=== PATIENT | female | born 1960 | race Caucasian/White ===

== ENCOUNTER 2016-05-22 13:59 | Outpatient (CLI) | payer MEDICARE, OTHER | END 2016-05-22 14:00 | disposition home or self-care (01) | DX: M25.551 Pain in right hip (principal) ==

== ENCOUNTER 2018-06-22 09:47 | Outpatient (CLI) | payer MEDICARE, OTHER ==
[2018-06-22] MEDS ORDERED: AMINOPHYLLINE 250 MG/10 ML VIAL ONE (12:00)
[2018-06-22] MEDS ORDERED: REGADENOSON 0.4 MG/5 ML SYRINGE IVP ONE ×2 (12:00→19:57)
--- NOTE | 2018-06-22 16:02 | CARDIAC PROCEDURE NOTE ---
DATE OF SERVICE: 06/22/2018 Physician: Sydni Saha MD, [facility] INDICATIONS: Chest pain, syncope, hypertension, bronchitis. CARDIAC RISK FACTORS: Surgical postmenopausal status, cigarette smoker, hypertension, family history of early heart disease (brother and father had CAD in their 40s). PROCEDURE: After signing informed consent, the patient underwent a Lexiscan pharmaceutical stress test with nuclear myocardial perfusion imaging. RESTING HEART RATE: 57. PEAK HEART RATE: 84. RESTING BLOOD PRESSURE: 106/65. PEAK BLOOD PRESSURE: 144/72. Lexiscan was infused per protocol. Patient developed 5/10 chest discomfort with the Lexiscan, and mild shortness of breath and later a headache. Aminophylline 50 mg was given for reversal, when after 4 minutes of recovery she had not resolved the symptoms. The chest pain resolved and the headache diminished. Oxygen saturation was 99% on room air. RESTING ELECTROCARDIOGRAM: Normal sinus rhythm, early R/S transition. ELECTROCARDIOGRAM AT PEAK: No new ST segment or T-wave changes. SUMMARY 1. Abnormal resting electrocardiogram, suggesting cor pulmonale (in a patient who smokes, she refused to quit as we spoke about this). 2. No ischemic changes by electrocardiogram criteria, on this pharmaceutical stress test. 3. Nuclear images reported separately. cc: Salomon Belle MD TD: 06/22/2018 13:52 MTDD
--- NOTE | 2018-06-23 11:24 | Nuclear Medicine Report ---
Reason: CHEST PAIN, CHRONIC BRONCHITIS Procedure Date: 06/22/2018 Accession Number: [id number] / [id number] Procedure: NM - Myocardial Perfusion STR/RST CPT Code: FULL RESULT: EXAM: SINGLE-ISOTOPE PHARMACOLOGICAL STRESS TEST WITH REGADENOSON. SINGLE-ISOTOPE AND ONE-DAY REST/STRESS MYOCARDIAL PERFUSION SCANS WITH TOMOGRAPHIC IMAGING, QUANTITATIVE ANALYSIS, WALL MOTION ANALYSIS AND CALCULATION OF EJECTION FRACTION. EXAM DATE: 06/22/2018 07:51 PM. CLINICAL HISTORY: CHEST PAIN, CHRONIC BRONCHITIS. COMPARISON: None. TECHNIQUE: After the intravenous administration of 10.4 mCi of Tc-99m sestamibi, a rest myocardial perfusion scan was done with tomography. Motion correction was applied when appropriate. After an appropriate delay, pharmacological stress was performed with the infusion of 0.4 mg regadenoson per protocol. According to protocol, 43.3 mCi of Tc-99m sestamibi was injected for stress myocardial perfusion scan. Motion correction was applied when appropriate. Gated tomographic images were obtained for wall motion analysis and computation of left ventricular ejection fraction. FINDINGS: Perfusion images: Left ventricular chamber size appears normal at rest and unchanged at stress. No convincing fixed perfusion deficits. No convincing reversible perfusion deficits. SSS 3, SRS 0, SDS 3. Gated images: No convincing focal wall motion abnormality. Calculated left ventricular EDV 85 mL, ESV 30 mL. The left ventricular ejection fraction is estimated at 64% (normal > 50%). IMPRESSION: 1. No convincing reversible perfusion deficits to indicate stress-induced ischemia. 2. No convincing fixed perfusion deficits. 3. Left ventricular ejection fraction of 64% (normal > 50%). RADIA
== END 2018-06-22 09:48 | disposition home or self-care (01) ==
LOC: DI 09:47
PROVIDERS: ATTEND Internal Medicine Cardiovascular Disease
DX: R07.89 Other chest pain (principal); J41.0 Simple chronic bronchitis; I10 Essential (primary) hypertension; R55 Syncope and collapse; R94.31 Abnormal electrocardiogram [ECG] [EKG]; F17.210 Nicotine dependence, cigarettes, uncomplicated; Z82.49 Family history of ischemic heart disease and other diseases of the circulatory system
CPT/HCPCS: 78452; 93017; 93306; A9500; J2785

== ENCOUNTER 2020-09-09 14:34 | Outpatient (CLI) | payer MEDICARE, OTHER ==
--- NOTE | 2020-09-09 17:15 | DEXA Report ---
PROCEDURE: Dexa Spine and/or Hip INDICATIONS: POST MENOPAUSAL, SCREENING FOR OSTEOPOROSIS TECHNIQUE: Dual energy x-ray absorptiometry (DXA) was performed on a [employer] System. Regions measur ed are the AP Spine, femoral neck, and if needed forearm. COMPARISON: None. FINDINGS: Lumbar Spine: Bone Mineral Density 1.098 g/cm/cm,T score -0.7, normal Left Hip: Bone Mineral Density 0.988 g/cm/cm,T score -0.2, normal Left Femoral Neck: Bone Mineral Density 0.921 g/cm/cm, T score -0.8, normal (T score greater or equal to -1.0: NORMAL) (T score from -1.1 to -2.4: OSTEOPENIA) (T score less than or equal to -2.5 to: OSTEOPOROSIS) Impression: Normal bone marrow density. Patients with diagnosis of osteoporosis or osteopenia should have regular bone mineral density assess ment. For those eligible for Medicare, routine testing is allowed once every 2 years. Testing frequ ency can be increased for patients who have rapidly progressing disease or for those who are receivin g medical therapy to restore bone mass. Reviewed by: Puja Suh MD, PhD on 09/09/2020 5:14 PM PDT Approved by: Puja Suh MD, PhD on 09/09/2020 5:14 PM PDT Station ID: [id number]
== END 2020-09-09 14:35 | disposition home or self-care (01) ==
LOC: DI 14:34
PROVIDERS: ATTEND Family Medicine
DX: Z13.820 Encounter for screening for osteoporosis (principal); Z78.0 Asymptomatic menopausal state

== ENCOUNTER 2020-09-11 15:43 | Outpatient (CLI) | payer MEDICARE, OTHER ==
--- NOTE | 2020-09-12 12:49 | Mammography Report ---
BILATERAL DIGITAL SCREENING MAMMOGRAM 3D/2D: 09/11/2020 CLINICAL: Routine screening. Baseline exam. No prior exams were available for comparison. There are scattered fibroglandular elements in both br easts. No significant masses, calcifications, or other findings are seen in either breast. IMPRESSION: NEGATIVE There is no mammographic evidence of malignancy. A 1 year screening mammogram is recommended. This exam was interpreted at Station ID: [id number]. NOTE: For mammograms, a report in lay terms will be sent to the patient. Approximately 15% of breast malignancies will not be visualized mammographically. In the management of a palpable breast mass, a negative mammogram must not discourage biopsy of a clinically suspicious lesion. Electronically Signed By: Emiliano guerrero/checo:09/11/2020 17:13:04 ACR BI-RADS Category 1: Negative 3341F PARENCHYMAL PATTERN: (A) - The breast(s) demonstrate(s) scattered fibroglandular densities. BI-RADS CATEGORY: (1) - 1 RECOMMENDATION: (ANNUAL) - Recommend routine annual screening mammography. [id number] 1 year screening LATERALITY: (B)
== END 2020-09-11 15:44 | disposition home or self-care (01) ==
LOC: DI.N 15:43
PROVIDERS: ATTEND Family Medicine
DX: Z12.31 Encounter for screening mammogram for malignant neoplasm of breast (principal)

== ENCOUNTER 2023-08-18 10:42 | Outpatient (CLI) | payer MEDICARE, OTHER ==
--- NOTE | 2023-08-19 10:41 | Mammography Report ---
BILATERAL DIGITAL SCREENING MAMMOGRAM 3D/2D: 08/18/2023 CLINICAL: Routine screening. Comparison is made to exam dated: 09/11/2020 mammogram - [facility]. There are scattered areas of fibroglandular density in both breasts (category b / 25%-50% glandular t issue). No significant masses, calcifications, or other findings are seen in either breast. There has been no significant interval change. IMPRESSION: NEGATIVE There is no mammographic evidence of malignancy. A 1 year screening mammogram is recommended. Based on the Tyrer Cuzick model (a risk assessment model) the patient's lifetime risk is 5.1% and her 10 year risk is 2.3%. According to the ACR, ACS, and NCCN guidelines, an annual breast MRI exam dipesh g with mammogram is recommended if the patient's lifetime risk is 20% or greater. This exam was interpreted at Station ID: [id number]. NOTE: For mammograms, a report in lay terms will be sent to the patient. Approximately 15% of breast malignancies will not be visualized mammographically. In the management of a palpable breast mass, a negative mammogram must not discourage biopsy of a clinically suspicious lesion. Electronically Signed By: Fior la/checo:08/18/2023 15:17:47 letter sent: No_Letter ACR BI-RADS Category 1: Negative 3341F PARENCHYMAL PATTERN: (A) - The breast(s) demonstrate(s) scattered fibroglandular densities. BI-RADS CATEGORY: (1) - 1 RECOMMENDATION: (ANNUAL) - Recommend routine annual screening mammography. [id number] 1 year screening LATERALITY: (B)
== END 2023-08-18 10:43 | disposition home or self-care (01) ==
LOC: DI.N 10:42
PROVIDERS: ATTEND Internal Medicine
DX: Z12.31 Encounter for screening mammogram for malignant neoplasm of breast (principal); R92.323 Mammographic fibroglandular density, bilateral breasts